=== PATIENT | female | born 1940 | race Caucasian/White ===

== ENCOUNTER → 2019-10-24 12:23 | Outpatient (BNVA) | payer MEDICARE, MEDICAID, SELFPAY | PROVIDERS: Family Provider Nurse Practitioner; PCP Nurse Practitioner; Visit Provider Nurse Practitioner | DX: I10 Essential (primary) hypertension (principal) | CPT/HCPCS: 80053; 80061 ==

== ENCOUNTER → 2020-04-23 11:58 | Outpatient (BNVA) | payer MEDICARE, MEDICAID, SELFPAY | PROVIDERS: Family Provider Nurse Practitioner; PCP Nurse Practitioner; Visit Provider Dermatology | DX: Z79.899 Other long term (current) drug therapy (principal) | CPT/HCPCS: 80053 ==

== ENCOUNTER → 2020-05-23 08:00 | Outpatient (BNVA) | payer MEDICARE, MEDICAID, SELFPAY | PROVIDERS: Family Provider Nurse Practitioner; PCP Nurse Practitioner; Visit Provider Dermatology | DX: Z79.899 Other long term (current) drug therapy (principal) | CPT/HCPCS: 80053 ==

== ENCOUNTER → 2020-06-26 11:54 | Outpatient (BNVA) | payer MEDICARE, MEDICAID, SELFPAY | PROVIDERS: Family Provider Nurse Practitioner; PCP Nurse Practitioner; Visit Provider Nurse Practitioner | DX: Z20.828 Contact with and (suspected) exposure to other viral communicable diseases (principal) | CPT/HCPCS: 87635 ==

== ENCOUNTER → 2020-11-27 12:05 | Outpatient (BNVA) | payer MEDICARE, MEDICAID, SELFPAY | PROVIDERS: Family Provider Nurse Practitioner; PCP Nurse Practitioner; Visit Provider Nurse Practitioner | DX: I10 Essential (primary) hypertension (principal); I63.9 Cerebral infarction, unspecified; K21.9 Gastro-esophageal reflux disease without esophagitis; B35.4 Tinea corporis; L70.0 Acne vulgaris; M50.30 Other cervical disc degeneration, unspecified cervical region | CPT/HCPCS: 80053; 80061; 84443 ==

== ENCOUNTER 2021-04-29 14:22 | Outpatient (CLI) | payer MEDICARE, MEDICAID, SELFPAY ==
--- NOTE | 2021-04-29 14:30 | MM_ITS ---
WS: [id number] BILATERAL DIGITAL DIAGNOSTIC MAMMOGRAM MAMMOGRAPHY WITH CAD CLINICAL INFORMATION: N63.0 - Unspecified lump in unspecified breast COMPARISON: October 2006 TECHNIQUE: Bilateral CC, MLO, and ML views. FINDINGS: Scattered fibroglandular densities bilaterally. Bilateral palpable markers. No specific underlying ma mmographic abnormalities. Ultrasound is pending. Vascular calcification. ULTRASOUND BREAST BILATERAL TECHNIQUE: Ultrasound bilateral breasts focused area of concern. CLINICAL INFORMATION: N63.0 - Unspecified lump in unspecified breast FINDINGS: Ultrasound bilateral breasts. Ultrasound right breast 11:00 position demonstrates shadowing artifact likely vascular calcification measuring 2.0 x 1.8 x 6.3 mm. Ultrasound left breast at the 3:00 position and at the nipple. Normal underlying breast tissue. No cy stic or solid lesions. No suspicious findings. MM/[place] [id number] IMPRESSION: BI-RADS: 2-Benign FOLLOW UP: 1 Year Follow-up Recommend return to annual screening mammography.
== END 2021-04-29 14:23 | disposition home or self-care (01) ==
LOC: RADSHAW 14:27
PROVIDERS: PCP Nurse Practitioner; Visit Provider Nurse Practitioner
DX: N63.11 Unspecified lump in the right breast, upper outer quadrant (principal); N63.21 Unspecified lump in the left breast, upper outer quadrant
CPT/HCPCS: 76642; 77066

== ENCOUNTER → 2021-07-01 15:41 | Outpatient (BNVA) | payer MEDICARE, MEDICAID, SELFPAY | PROVIDERS: PCP Nurse Practitioner; Visit Provider Nurse Practitioner | DX: I10 Essential (primary) hypertension (principal); E78.2 Mixed hyperlipidemia | CPT/HCPCS: 80053; 80061; 82607; 84443; 85025 ==

== ENCOUNTER → 2021-07-17 10:21 | Outpatient (BNVA) | payer MEDICARE, MEDICAID, SELFPAY | PROVIDERS: PCP Nurse Practitioner; Visit Provider Nurse Practitioner | DX: E87.1 Hypo-osmolality and hyponatremia (principal) | CPT/HCPCS: 80048 ==

== ENCOUNTER → 2021-08-21 11:03 | Outpatient (BNVA) | payer MEDICARE, MEDICAID, SELFPAY | PROVIDERS: PCP Nurse Practitioner; Visit Provider Nurse Practitioner Family | DX: J40 Bronchitis, not specified as acute or chronic (principal); R06.89 Other abnormalities of breathing | CPT/HCPCS: 71046; 85025 ==

== ENCOUNTER → 2021-11-18 13:52 | Outpatient (BNVA) | payer MEDICARE, MEDICAID, SELFPAY | PROVIDERS: PCP Nurse Practitioner; Visit Provider Nurse Practitioner Family | DX: E87.1 Hypo-osmolality and hyponatremia (principal); K04.7 Periapical abscess without sinus | CPT/HCPCS: 80053 ==

== ENCOUNTER → 2022-01-20 11:43 | Outpatient (BNVA) | payer MEDICARE, MEDICAID, SELFPAY | PROVIDERS: PCP Nurse Practitioner; Visit Provider Nurse Practitioner | DX: E78.2 Mixed hyperlipidemia (principal); R53.1 Weakness | CPT/HCPCS: 80053; 80061; 85025 ==

== ENCOUNTER → 2022-02-06 14:23 | Outpatient (BNVA) | payer MEDICARE, MEDICAID, SELFPAY | PROVIDERS: PCP Nurse Practitioner; Visit Provider Nurse Practitioner | DX: I10 Essential (primary) hypertension (principal); K21.9 Gastro-esophageal reflux disease without esophagitis; J30.1 Allergic rhinitis due to pollen; K58.0 Irritable bowel syndrome with diarrhea; E87.1 Hypo-osmolality and hyponatremia | CPT/HCPCS: 80048 ==

== ENCOUNTER 2022-04-22 12:33 | Outpatient (CLI) | payer MEDICARE, MEDICAID, SELFPAY ==
--- NOTE | 2022-04-22 13:00 | MR_ITS ---
WS: [id number] MRI BRAIN WITHOUT CONTRAST HISTORY: R53.1 - Weakness COMPARISON: 04/27/2014 TECHNIQUE: Diffusion imaging, multiplanar T1, T2 and FLAIR imaging obtained. No evidence for acute infarct or hemorrhage. Banks-white matter differentiation is normal. Mild symmetric atrophy and mild small vessel ischemic type changes. No large territory infarct. Small arachnoid cyst in the retrocerebellar region. Ventricles and extra-axial spaces are normal. No inferior displacement of cerebellar tonsils. The sella turcica and pituitary gland are unremarkabl e. Dural venous sinuses and [place] demonstrate no abnormality on this unenhanced studies. Paranasal sinuses: Clear. Mastoid air cells: Normal. Calvarium and scalp: Intact. MR/MR head wo con* [id number] IMPRESSION: 1. No acute infarct or hemorrhage. 2. Mild atrophy and small vessel ischemic disease. Mild progression since the prior study from 2013. 3. Retrocerebellar arachnoid cyst, stable.
== END 2022-04-22 12:34 | disposition home or self-care (01) ==
PROVIDERS: PCP Nurse Practitioner; Visit Provider Nurse Practitioner
DX: R53.1 Weakness (principal)
CPT/HCPCS: 70551

== ENCOUNTER → 2022-06-26 13:32 | Outpatient (BNVA) | payer MEDICARE, MEDICAID, SELFPAY | PROVIDERS: PCP Nurse Practitioner; Visit Provider Nurse Practitioner Family | DX: E87.1 Hypo-osmolality and hyponatremia (principal); R42 Dizziness and giddiness; H65.90 Unspecified nonsuppurative otitis media, unspecified ear; F03.90 Unspecified dementia, unspecified severity, without behavioral disturbance, psychotic disturbance, mood disturbance, and anxiety; Z86.73 Personal history of transient ischemic attack (TIA), and cerebral infarction without residual deficits; R25.1 Tremor, unspecified | CPT/HCPCS: 80053; 81000; 85025 ==

== ENCOUNTER → 2022-10-27 10:38 | Outpatient (BNVA) | payer MEDICARE, MEDICAID, SELFPAY | PROVIDERS: PCP Nurse Practitioner; Visit Provider Nurse Practitioner | DX: I10 Essential (primary) hypertension (principal) | CPT/HCPCS: 80053; 80061; 84443; 85025 ==

== ENCOUNTER → 2023-04-20 11:09 | Outpatient (BNVA) | payer MEDICARE, MEDICAID, SELFPAY | PROVIDERS: PCP Nurse Practitioner; Visit Provider Nurse Practitioner | DX: E55.9 Vitamin D deficiency, unspecified (principal); I10 Essential (primary) hypertension | CPT/HCPCS: 80053; 80061; 82306; 84443; 85025 ==

== ENCOUNTER → 2023-04-29 09:44 | Outpatient (BNVA) | payer MEDICARE, MEDICAID, SELFPAY | PROVIDERS: PCP Nurse Practitioner; Visit Provider Nurse Practitioner | DX: I10 Essential (primary) hypertension (principal); M16.0 Bilateral primary osteoarthritis of hip; M51.36 Other intervertebral disc degeneration, lumbar region; M47.9 Spondylosis, unspecified | CPT/HCPCS: 72100; 73502 ==

== ENCOUNTER → 2023-05-28 11:22 | Outpatient (BNVA) | payer MEDICARE, MEDICAID, SELFPAY | PROVIDERS: PCP Nurse Practitioner; Visit Provider Nurse Practitioner | DX: M25.531 Pain in right wrist (principal) | CPT/HCPCS: 73110 ==

== ENCOUNTER → 2023-07-13 10:09 | Outpatient (BNVA) | payer MEDICARE, MEDICAID, SELFPAY | PROVIDERS: PCP Nurse Practitioner; Visit Provider Nurse Practitioner | DX: E55.9 Vitamin D deficiency, unspecified (principal); I10 Essential (primary) hypertension; F41.8 Other specified anxiety disorders; I63.9 Cerebral infarction, unspecified; K21.9 Gastro-esophageal reflux disease without esophagitis; J30.1 Allergic rhinitis due to pollen; E78.2 Mixed hyperlipidemia | CPT/HCPCS: 80053; 80061; 81000; 82306; 85025 ==

== ENCOUNTER 2023-07-28 15:58 | Outpatient (CLI) | payer MEDICARE, MEDICAID, SELFPAY ==
--- NOTE | 2023-07-28 16:30 | CT_ITS ---
WS: [id number] CT HEAD NONCONTRAST HISTORY: I63.9 - Cerebral infarction, unspecified TECHNIQUE: Contiguous axial imaging performed through the brain in 2.5 mm imaging. Bone and soft tiss ue windows. Sagittal and coronal reformats reviewed. All CT scans at [facility] use at least one of these dose optimization techniques: automated exposure control; mA and/or kV adjustment per pa tient size (includes targeted exams where dose is matched to clinical indication); or iterative recon struction. DLP: 1007.79 mGy.cm COMPARISON: 04/26/2014 No acute intracranial hemorrhage, midline shift or mass effect. Mild atrophy and moderate small vessel ischemic type changes. Mild progression of small vessel diseas e and atrophy since the prior exam. Remote LEFT thalamic infarct. The LEFT thalamic infarct is remote but new since 2013. Ventricles: Normal size with no hydrocephalus. No inferior displacement of cerebellar tonsils. 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 Paranasal sinuses: As visualized are clear. Mastoid air cells: Well pneumatized. Calvarium and scalp: Hyperostosis frontalis interna. No destructive lesions. IMPRESSION: 1. No acute intracranial hemorrhage or edema. 2. Mild progression of cerebral atrophy and small vessel ischemic disease since 2013. 3. LEFT thalamic lacunar infarct is remote but new since 2013.
== END 2023-07-28 15:59 | disposition home or self-care (01) ==
LOC: RAD 15:59
PROVIDERS: PCP Nurse Practitioner; Visit Provider Nurse Practitioner
DX: I63.9 Cerebral infarction, unspecified (principal); G31.9 Degenerative disease of nervous system, unspecified
CPT/HCPCS: 70450

== ENCOUNTER → 2024-02-04 12:56 | Outpatient (BNVA) | payer MEDICARE, MEDICAID, SELFPAY | PROVIDERS: PCP Internal Medicine; Visit Provider Dermatology | DX: L57.0 Actinic keratosis (principal); L92.0 Granuloma annulare; D48.5 Neoplasm of uncertain behavior of skin | CPT/HCPCS: 99204 ==

== ENCOUNTER → 2024-04-11 13:26 | Outpatient (BNVA) | payer MEDICARE, MEDICAID, SELFPAY | PROVIDERS: PCP Internal Medicine; Visit Provider Nurse Practitioner Family | DX: D48.5 Neoplasm of uncertain behavior of skin (principal); L57.0 Actinic keratosis; L92.0 Granuloma annulare | CPT/HCPCS: 11102; 99214 ==

== ENCOUNTER 2024-04-17 17:36 | Emergency (ER) | payer MEDICARE, MEDICAID, SELFPAY ==
[2024-04-17 17:41] VITALS: BP 126/91; PULSE 92; RESP 18; TEMP 36.9; O2SAT 98
--- NOTE | 2024-04-17 17:42 | ED_ITS ---
HPI - Extremity Injury (Lower) 2 General: Chief Complaint: Weakness Stated Complaint: LEFT HIP PAIN S/P FALL Time Seen by Provider: 04/17/24 17:41 History of Present Illness: 84-year-old female was brought in from [facility] for evaluation of a fall. Patient complains of left hip pain and left shoulder pain. No obvious deformity is noted. Patient is not able to lift leg off the bed on the left side. Patient reports lateral hip pain. Patient is unsteady on her feet and reports that she stumbled and fell. 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 Mixed hyperlipidemia Vitamin D deficiency, unspecified Surgical History H/O hysterectomy for benign disease Status post surgical removal of nail matrix of toe of right foot both right and left feet both great toes 10/10/2019 Family History Grandfather Cancer Brother Cancer Other Hypertension Stroke Denies family history of Diabetes CAD (coronary artery disease) Clotting disorder Dementia Chronic kidney disease (CKD) Suicide Anesthesia complication Bleeding disorder Family history of premature coronary artery disease Lung disease Social History Smoking and tobacco/nicotine status: never used tobacco/nicotine Second hand smoke exposure: No Alcohol intake: never Substance/Drug Use: never Adopted: No Caregiver/support person: No Lives independently: Yes Household members: family Housing: House Marital status: / Number of children: 8 service: No Current occupational status: retired Current occupational exposures/hazards: No Pets and animals: Yes Pets & animals: bird(s) Do you think of yourself as: Straight/Heterosexual Current gender identity: Female Physical Exam 2 Const: COMMON NORMALS: alert HENMT: COMMON NORMALS: normocephalic HEAD & SCALP: normocephalic Neck/C-Spine: COMMON NORMALS: full ROM CERVICAL SPINE: No Cervical spine tenderness Chest: COMMONS NORMALS: normal palpation of entire chest wall Resp: COMMON NORMALS: normal respiratory effort and clear to auscultation bilaterally AUSCULTATION: clear to auscultation bilaterally Cardio: COMMON NORMALS: regular rate and regular rhythm RATE: regular rate RHYTHM: regular rhythm GI: COMMON NORMALS: Soft to palpation and non-tender PALPATION: Yes Soft to palpation Back/Pelvis: COMMON NORMALS: thoracic and lumbar spine normal to inspection Extremity: NARRATIVE EXTREMITY EXAM: Tenderness to the left hip, no obvious shortening or rotation distally. Patient has posterior left shoulder discomfort. LEFT LOWER EXTREMITY: Yes hip joint (Tenderness to palpation) Neuro: SENSORIUM/ORIENTATION: Yes alert Skin: COMMON NORMALS: turgor normal GENERAL SKIN EXAM: turgor normal Course 2 Vital Signs: Vital signs: Vital Signs Temperature 98.4 F 04/17/24 17:41 Pulse Rate 79 04/17/24 18:57 Respiratory Rate 18 04/17/24 17:41 Blood Pressure 132/104 04/17/24 18:57 Pulse Oximetry 96 04/17/24 18:57 Oxygen Delivery Me thod Room Air 04/17/24 17:41 MDM - Extremity Injury (Lower) Medical Decision Making Patient was referred from [facility] [place] for evaluation of injuries from a stumble and fall. Patient has tenderness to the left lateral left hip, and to the posterior shoulder. Patient reports no spinal tenderness. Differential diagnosis includes fracture, contusion, sprain, intracranial bleeding. CT of the head and cervical spine noted no fracture or intracranial bleeding. X-rays of the shoulder, chest x-ray, and hip and pelvis noted no fracture, or acute cardiopulmonary process. Patient was able to bear weight to transfer and to get to the commode. Patient was discharged back to nursing center for further care and treatment. Recommend follow-up or return for worsening symptoms or new concerns. Lab Data 04/17/24 18:12 04/17/24 18:12 Radiology Impressions Cervical Spine CT 04/17/24 17:48 IMPRESSION: There are degenerative changes as described above. No evidence for acute fracture. ADDENDUM: 04/17/24 1931 ADDENDUM: Please disregard the C2-C3 through the C7-T1 disc descriptions as they are not accurate and are part of the template not purposely used. There are multilevel broad-based disc osteophyte complexes which indents the anterior thecal sac and results in varying degrees of bilateral neural foraminal narrowing. Chest X-Ray 04/17/24 17:48 IMPRESSION: 1. No acute cardiopulmonary abnormality. If there is ongoing clinical concern for traumatic injury, consider correlation with CT. Head CT 04/17/24 17:48 IMPRESSION: There are senescent changes of the brain as described above. No evidence for large acute ischemic infarction or acute intracranial injury. Hip/Pelvis X-Ray 04/17/24 17:48 IMPRESSION: 1. No evidence of fracture or subluxation. If there is ongoing clinical concern, consider correlation with CT. Shoulder X-Ray 04/17/24 17:48 IMPRESSION: 1. No evidence of fracture or subluxation. If there is ongoing clinical concern, consider correlation with CT. Laboratory Results WBC 8.60 10^3/uL (3.29-11.43) 04/17/24 18:12 RBC 3.75 10^6/uL (3.85-5.65) L 04/17/24 18:12 Hgb 11.60 g/dL (11.27-16.99) 04/17/24 18:12 Hct 35.7 % (36-47) L 04/17/24 18:12 MCV 95.2 fl (85-98) 04/17/24 18:12 MCH 30.9 pg (27-33) 04/17/24 18:12 MCHC 32.5 g/dL (30-55) 04/17/24 18:12 RDW 13.1 % (12.1-15.1) 04/17/24 18:12 Plt Count 352 10^3/cmm (157-399) 04/17/24 18:12 MPV 10.3 fL (7.4-10.4) 04/17/24 18:12 Neut % (Auto) 66.9 % 04/17/24 18:12 Lymph % (Auto) 24.3 % 04/17/24 18:12 [place] % (Auto) 6.2 % 04/17/24 18:12 Eos % (Auto) 1.7 % 04/17/24 18:12 Baso % (Auto) 0.7 % 04/17/24 18:12 Neut # (Auto) 5.75 10^3/uL (1.8-7.7) 04/17/24 18:12 Lymph # (Auto) 2.1 10^3/uL (0.8-4.8) 04/17/24 18:12 [place] # (Auto) 0.5 10^3/uL (0.2-0.9) 04/17/24 18:12 Eos # (Auto) 0.2 10^3/uL (0.0-0.8) 04/17/24 18:12 Baso # (Auto) 0.1 10^3/uL (0.0-0.1) 04/17/24 18:12 Nucleated RBC % (auto) 0 % 04/17/24 18:12 Nucleated RBCs # 0.0 /100WBC 04/17/24 18:12 Sodium 136 mmol/L (136-145) 04/17/24 18:12 Potassium 4.2 mmol/L (3.5-5.1) 04/17/24 18:12 Chloride 101 mmol/L (98-107) 04/17/24 18:12 Carbon Dioxide 25 mmol/L (22-29) 04/17/24 18:12 Anion Gap 14.2 (5-19) 04/17/24 18:12 BUN 12 mg/dL (8-23) 04/17/24 18:12 Creatinine 0.8 mg/dL (0.5-0.9) 04/17/24 18:12 GFR Calculation Not Reportable 04/17/24 18:12 Glucose 91 mg/dL (65-115) 04/17/24 18:12 Calculated Osmolality 281 mOsm/kg (285-295) L 04/17/24 18:12 Calcium 9.7 mg/dL (8.5-10.5) 04/17/24 18:12 Total Bilirubin 0.2 mg/dL (0.15-1.2) 04/17/24 18:12 AST 14 U/L (0-32) 04/17/24 18:12 ALT 10 U/L (0-33) 04/17/24 18:12 Alkaline Phosphatase 106 U/L (35-105) H 04/17/24 18:12 Total Protein 7.8 g/dL (6.6-8.7) 04/17/24 18:12 Albumin 4.2 g/dL (3.5-5.2) 04/17/24 18:12 Globulin 3.6 g/dL (1.3-4.6) 04/17/24 18:12 Urine Color Yellow (Yellow) 04/17/24 18:12 Urine Appearance Cloudy (CLEAR) A 04/17/24 18:12 Urine pH 7 (5-7) 04/17/24 18:12 Ur Specific [place] 1.000 (1.005-1.030) L 04/17/24 18:12 Urine Protein Neg (Negative) 04/17/24 18:12 Urine Glucose (UA) Norm (Normal) 04/17/24 18:12 Urine Ketones 1+ (Negative) H 04/17/24 18:12 Urine Blood 2+ (Negative) H 04/17/24 18:12 Urine Nitrate Negative (Negative) 04/17/24 18:12 Urine Bilirubin Neg (Negative) 04/17/24 18:12 Urine Urobilinogen Neg mg/dL (Negative) 04/17/24 18:12 Ur Leukocyte Esterase 2+ (Negative) H 04/17/24 18:12 Urine RBC 0-4 /hpf (0-2) H 04/17/24 18:12 Urine WBC 15-25 /hpf (0-5) H 04/17/24 18:12 Ur Squamous Epith Cells 5-10 /hpf (0-5) H 04/17/24 18:12 Amorphous Sediment 1+ /hpf 04/17/24 18:12 Urine Bacteria 2+ /hpf (NONE) H 04/17/24 18:12 All radiology interpretation(s) finalized by discharge Discharge Plan Discharge Patient Disposition: Home Clinical Impression: Fall from ground level, Hip pain, left Left shoulder pain Qualifiers: Chronicity: acute Qualified Code(s): M25.512 - Pain in left shoulder Prescriptions: No Action (DME) syringe with needle 3 mL 22 gauge x 1 syringe See Rx Instructions .ROUTE .MEDSUPPLY Qty: 1 0RF Rx Instructions: As directed meclizine 25 mg tablet 25 mg PO PRN cholecalciferol (vitamin D3) 5,000 unit capsule 5,000 unit PO ONCE MediHoney (honey) 100 % paste 1 applic TOPICAL BID Qty: 528 0RF albuterol sulfate 2.5 mg /3 mL (0.083 %) solution for nebulization 2.5 mg inhalation QID PRN (Reason: shortness of breath or wheezing) Qty: 75 0RF amlodipine 5 mg tablet 5 mg PO DAILY Qty: 30 2RF citalopram [Celexa] 20 mg tablet 20 mg PO DAILY Qty: 30 2RF clopidogrel [Plavix] 75 mg tablet 75 mg PO QDAY Qty: 30 2RF famotidine [Pepcid] 40 mg tablet 40 mg PO DAILY Qty: 30 2RF levocetirizine 5 mg tablet 5 mg PO DAILY Qty: 30 2RF losartan [Cozaar] 50 mg tablet 50 mg PO DAILY Qty: 30 2RF rosuvastatin [Crestor] 10 mg tablet 10 mg PO DAILY Qty: 30 2RF (DME) Right wrist brace See Rx Instructions .Route .MEDSUPPLY Qty: 1 0RF Rx Instructions: As directed Discharge Orders: Discharge ED (Routine); Ordered 04/17/24 Ordered By: Adama Perez Referrals: Lawrence Woodard MD [Primary Care Provider] - Discharge Diet: Usual diet Discharge Activity: Increase activity as tolerated Patient Instructions: Fall Prevention (ED) Activity Restrictions/Additional Instructions: Up with assistance. Use a walker to help with ambulation or transfers. Use acetaminophen as needed for pain. Follow-up with primary care as needed. Return to ER for worsening symptoms or new concerns. Coding Level of Care Code ED Strike Out Machine Operator for Skinny Noriega
--- NOTE | 2024-04-17 17:48 | CTR_ITS ---
PROCEDURE INFORMATION: Exam: CT Cervical Spine Without Contrast Exam date and time: 04/17/2024 6:31 PM Age: 84 years old Clinical indication: Injury or trauma; Blunt trauma; Patient HX: EMS arrival from shelter for fall. C/O head pain. Anticoagulated. TECHNIQUE: Imaging protocol: Computed tomography of the cervical spine without contrast. Radiation optimization: All CT scans at this facility use at least one of these dose optimization techniques: automated exposure control; mA and/or kV adjustment per patient size (includes targeted exams where dose is matched to clinical indication); or iterative reconstruction. COMPARISON: CT head wo con* [id number] 04/17/2024 6:29 PM RADIATION DOSE METRICS: Total DLP (mGy-cm): 381.57 FINDINGS: Bones/joints: There are degenerative changes throughout the visualized spine including marginal osteophyte formations, endplate degenerative changes, and facet arthropathy. Multilevel disc space narrowing. There are multilevel broad-based disc osteophyte complexes which indent the anterior thecal sac and result in varying degrees of bilateral neuroforamina narrowing. There are degenerative changes across the temporomandibular joints. C2-C3: No significant disc bulge or herniation. No severe spinal canal stenosis. No significant neural foraminal narrowing. C3-C4: No significant disc bulge or herniation. No severe spinal canal stenosis. No significant neural foraminal narrowing. C4-C5: No significant disc bulge or herniation. No severe spinal canal stenosis. No significant neural foraminal narrowing. C5-C6: No significant disc bulge or herniation. No severe spinal canal stenosis. No significant neural foraminal narrowing. C6-C7: No significant disc bulge or herniation. No severe spinal canal stenosis. No significant neural foraminal narrowing. C7-T1: No significant disc bulge or herniation. No severe spinal canal stenosis. No significant neural foraminal narrowing. Lungs: Lung apices are normal. Soft tissues: Unremarkable. CT/CT cervical spin wo con* [id number] IMPRESSION: There are degenerative changes as described above. No evidence for acute fracture.
--- NOTE | 2024-04-17 17:48 | XRR_ITS ---
PROCEDURE INFORMATION: Exam: XR Left Shoulder Exam date and time: 04/17/2024 6:16 PM Age: 84 years old Clinical indication: Left; Patient HX: Lt hip/shoulder pain post fall; SOB TECHNIQUE: Imaging protocol: Radiologic exam of the left shoulder. Views: 2 or more views. COMPARISON: CR (CHEST, ) 04/17/2024 6:16 PM FINDINGS: Bones/joints: The glenohumeral articulation is grossly intact with mild osteoarthritis. The acromioclavicular articulation is grossly intact with mild-moderate osteoarthritis. Soft tissues: No gross soft tissue abnormality. XR/XR shoulder LT min 2V* [id number] IMPRESSION: 1. No evidence of fracture or subluxation. If there is ongoing clinical concern, consider correlation with CT.
--- NOTE | 2024-04-17 17:48 | XRR_ITS ---
PROCEDURE INFORMATION: Exam: XR Left Hip Exam date and time: 04/17/2024 6:16 PM Age: 84 years old Clinical indication: Injury or trauma; Patient HX: Lt hip/shoulder pain post fall; SOB TECHNIQUE: Imaging protocol: Radiologic exam of the left hip. Views: 2 or 3 views hip with pelvis when performed. COMPARISON: CR XR lumbar spine 2-3V* [id number] 04/29/2023 9:56 AM FINDINGS: Bones/joints: Mild-moderate osteoarthritis without evidence of fracture or subluxation. Pelvic ring is grossly intact. Soft tissues: Mild soft tissue edema overlying the greater trochanter on the left. XR/XR hip LT 2-3V wo/w pel* [id number] IMPRESSION: 1. No evidence of fracture or subluxation. If there is ongoing clinical concern, consider correlation with CT.
--- NOTE | 2024-04-17 17:48 | XRR_ITS ---
PROCEDURE INFORMATION: Exam: XR Chest Exam date and time: 04/17/2024 6:16 PM Age: 84 years old Clinical indication: Injury or trauma; Patient HX: Lt hip/shoulder pain post fall; SOB TECHNIQUE: Imaging protocol: Radiologic exam of the chest. Views: 1 view. COMPARISON: CR XR chest 2V* [id number] 08/21/2021 11:02 AM FINDINGS: Lungs: No focal consolidation. Pleural spaces: No evidence of pneumothorax. No evidence of pleural effusion. Heart/Mediastinum: Cardiomediastinal silhouette is within normal limits. Bones/joints: No evidence of acute osseous abnormality. XR/XR chest 1V portable [id number] IMPRESSION: 1. No acute cardiopulmonary abnormality. If there is ongoing clinical concern for traumatic injury, consider correlation with CT.
--- NOTE | 2024-04-17 17:48 | CTR_ITS ---
PROCEDURE INFORMATION: Exam: CT Head Without Contrast Exam date and time: 04/17/2024 6:29 PM Age: 84 years old Clinical indication: Injury or trauma; Blunt trauma (contusions or hematomas); Patient HX: EMS arrival from snf for fall. C/O head pain. Anticoagulated. ; Additional info: Fall injury TECHNIQUE: Imaging protocol: Computed tomography of the head without contrast. Radiation optimization: All CT scans at this facility use at least one of these dose optimization techniques: automated exposure control; mA and/or kV adjustment per patient size (includes targeted exams where dose is matched to clinical indication); or iterative reconstruction. COMPARISON: CT head wo con* [id number] 07/28/2023 4:08 PM RADIATION DOSE METRICS: Total DLP (mGy-cm): 1051.28 FINDINGS: Brain: There is diffuse cerebral atrophy present, consistent with this patient's age.Periventricular and subcortical white matter low densities are present which at this age likely represent microvascular ischemic change. There is a chronic lacunar infarct in the left thalamus.No evidence for large acute ischemic infarction. Please note acute ischemia can be occult by head CT. No evidence for acute intracranial hemorrhage. Calcified plaque is present within the intracranial vasculature. 2.6 cm CSF collection in the midline posterior fossa consistent with a benign arachnoid cyst. Cerebral ventricles: No ventriculomegaly. Paranasal sinuses: Visualized sinuses are unremarkable. No fluid levels. Mastoid air cells: Visualized mastoid air cells are well aerated. Bones: Unremarkable. No acute fracture. Soft tissues: Unremarkable. CT/CT head wo con* [id number] IMPRESSION: There are senescent changes of the brain as described above. No evidence for large acute ischemic infarction or acute intracranial injury.
--- NOTE | 2024-04-17 17:52 | ECG_ITS ---
[facility] Test Date: 2024-04-17 Pat Name: Angie Bhakta Department: Room: Gender: Female Draw Machine Operator: : [id number] Requested By: Adama Herman Order Number: [id number] Diana MD: Michael Pool M.D. Measurements Intervals Dennis Rate: 87 P: 66 NM: 142 QRS: 78 QRSD: 70 T: 61 QT: 353 QTc: 425 Interpretive Statements SINUS RHYTHM WITH OCCASIONAL SUPRAVENTRICULAR PREMATURE COMPLEXES NONSPECIFIC T-WAVE ABNORMALITY Compared to ECG 01/14/2018 20:21:21 No significant changes Electronically Signed On 04-18-2024 9:45:48 CDT by Michael Pool M.D. [email or web address]
[2024-04-17 18:18] VITALS: BP 149/107; PULSE 81; O2SAT 96
[2024-04-17 18:18] LABS: Basophils # 0.1 10^3/uL (0.0-0.1); Basophils % 0.7 %; Eosinophils # 0.2 10^3/uL (0.0-0.8); Eosinophils % 1.7 %; Hematocrit 35.7 % (36-47); Lymphocytes # 2.1 10^3/uL (0.8-4.8); Lymphocytes % 24.3 %; Mean Corpuscular HGB Conc 32.5 g/dL (30-55); Mean Corpuscular Hemoglobin 30.9 pg (27-33); Mean Corpuscular Volume 95.2 fl (85-98); Mean Platelet Volume 10.3 fL (7.4-10.4); Monocytes # 0.5 10^3/uL (0.2-0.9); Monocytes % 6.2 %; Neutrophils # 5.75 10^3/uL (1.8-7.7); Neutrophils % 66.9 %; Nucleated Red Blood Cells % 0 %; Platelet Count 352 10^3/cmm (157-399); Red Blood Count 3.75 10^6/uL (3.85-5.65); Red Cell Distribution Width 13.1 % (12.1-15.1)
[2024-04-17 18:41] LABS: Alanine Aminotransferase 10 U/L (0-33); Albumin Level 4.2 g/dL (3.5-5.2); Alkaline Phosphatase 106 U/L (35-105); Anion Gap 14.2 (5-19); Aspartate Amino Transferase 14 U/L (0-32); Blood Urea Nitrogen 12 mg/dL (8-23); Calcium 9.7 mg/dL (8.5-10.5); Carbon Dioxide 25 mmol/L (22-29); Chloride 101 mmol/L (98-107); Creatinine Clr Calc Pharmacy 50.2534; Globulin 3.6 g/dL (1.3-4.6); Glucose 91 mg/dL (65-115); Osmolality Calculated 281 mOsm/kg (285-295); Potassium 4.2 mmol/L (3.5-5.1); Sodium 136 mmol/L (136-145); Total Bilirubin 0.2 mg/dL (0.15-1.2); Total Protein 7.8 g/dL (6.6-8.7)
[2024-04-17 18:57] VITALS: BP 132/104; PULSE 79; O2SAT 96
[2024-04-17 19:10] LABS: Add Urine Culture? Yes; Add Urine Microscopic? YES; Amorphous Sediment Urine 1+ /hpf; Bacteria Urine 2+ /hpf; Bilirubin Urine Neg (Negative); Blood Urine 2+ (Negative); Glucose Urine UA Norm (Normal); Ketones Urine 1+ (Negative); Leukocyte Esterase Urine 2+ (Negative); Nitrate Urine Negative (Negative); Protein Urine Neg (Negative); RBC Urine 0-4 /hpf (0-2); Urine Appearance Cloudy (CLEAR); Urine Color Yellow (Yellow); Urobilinogen Urine Neg (Negative); WBC Urine 15-25 /hpf (0-5); pH Urine 7 (5-7)
== END 2024-04-17 20:09 | disposition home or self-care (01) ==
PROVIDERS: Emergency Provider Nurse Practitioner Family; PCP Internal Medicine
DX: M25.552 Pain in left hip (principal); I10 Essential (primary) hypertension; E78.2 Mixed hyperlipidemia; Z79.899 Other long term (current) drug therapy; Z86.73 Personal history of transient ischemic attack (TIA), and cerebral infarction without residual deficits; W01.0XXA Fall on same level from slipping, tripping and stumbling without subsequent striking against object, initial encounter
CPT/HCPCS: 70450; 71045; 72125; 73030; 73502; 80053; 81001; 85025; 87086; 93005; 99285

== ENCOUNTER → 2024-08-16 14:45 | Outpatient (BNVA) | payer MEDICARE, MEDICAID, SELFPAY | PROVIDERS: PCP Internal Medicine; Visit Provider Nurse Practitioner Family | DX: L57.0 Actinic keratosis (principal); D69.2 Other nonthrombocytopenic purpura; L57.8 Other skin changes due to chronic exposure to nonionizing radiation | CPT/HCPCS: 17000; 99213 ==

== ENCOUNTER → 2024-12-12 13:25 | Outpatient (BNVA) | payer MEDICARE, MEDICAID, SELFPAY | PROVIDERS: PCP Internal Medicine; Visit Provider Nurse Practitioner Family | DX: D69.2 Other nonthrombocytopenic purpura (principal); L57.8 Other skin changes due to chronic exposure to nonionizing radiation; D18.01 Hemangioma of skin and subcutaneous tissue; L57.0 Actinic keratosis | CPT/HCPCS: 17000; 99213 ==

== ENCOUNTER 2025-01-30 14:31 | Outpatient (CLI) | payer MEDICARE, MEDICAID, SELFPAY ==
--- NOTE | 2025-01-30 14:43 | CT_ITS ---
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 TECHNIQUE: Contiguous 2 mm axial images are performed through the neck with intravenous contrast. Sagittal and coronal reformats are also submitted. All CT scans at [facility] use at least one of these dose optimization techniques: automated exposure control; mA and/or kV adjustment per patient size (includes targeted exams where dose is matched to clinical indication); or iterative reconstruction. CONTRAST: CONTRAST: Omnipaque 350; 100 mL IV. DLP: 151.41 mGy.cm COMPARISON: Cervical spine CT 04/17/2024, 01/10/2017 Palpable marker is noted along the RIGHT lateral neck just below the ear and superficial to the parotid gland. There is mild heterogeneity within the parotid gland and a very tiny superficial low-attenuation nodule which was also present on the cervical spine CT of 04/17/2024. Nodule measures 3.4 mm. There is mild heterogeneity within the parotid gland but no definite mass. Parotid glands are very symmetric. No stones or calcifications or dilatation of the parotid duct. Nasopharynx, oropharynx, hypopharynx and larynx are unremarkable. No soft tissue masses or abnormal enhancement. Torus tubarius and fossa of Rosenmuller and parapharyngeal fat are normal. Small bilateral cervical chain lymph nodes. No hyperemic lymph nodes or necrotic lymph nodes. Similar appearance to the lymph nodes compared to 04/17/2024. Normal appearance of the thyroid. Submandibular glands are normal. Mild cervical spondylosis. Visualized portions of the skull base demonstrate no abnormalities. Orbits and globes are within normal limits. No soft tissue masses. Small amount of debris in the RIGHT sphenoid sinus. Tiny polyp or mucous retention cyst RIGHT maxillary sinus. Micronodule LEFT apex. This small nodule is also present on the study from 2013. Atherosclerosis aorta. Mediastinal lymph nodes in the upper chest similar to the prior exam from 2013. CT/CT neck w con* [id number] IMPRESSION: 1. Stable appearance of the parotid glands since 2016. There is a very tiny lo w-attenuation, 3.4 mm nodule along the superficial RIGHT parotid gland which is closely associated with the marker placed at the palpable site. 2. No cervical chain lymphadenopathy. 3. Long-term stability 3 mm nodule LEFT upper lobe. 4. No parotid duct calcification or parotid gland inflammation.
[2025-01-30 15:09] LABS: Blood Urea Nitrogen 7 mg/dL (8-23)
[2025-01-30] MEDS: iohexol 350 mg/mL 500 mL Btl (per mL) IV (15:19)
== END 2025-01-30 14:32 | disposition home or self-care (01) ==
LOC: RAD 14:36
PROVIDERS: PCP Internal Medicine; Visit Provider Otolaryngology
DX: D37.030 Neoplasm of uncertain behavior of the parotid salivary glands (principal); K11.20 Sialoadenitis, unspecified; R93.89 Abnormal findings on diagnostic imaging of other specified body structures; R59.0 Localized enlarged lymph nodes; M47.892 Other spondylosis, cervical region; J34.89 Other specified disorders of nose and nasal sinuses; R91.1 Solitary pulmonary nodule; I70.0 Atherosclerosis of aorta
CPT/HCPCS: 70491; 82565; 84520

== ENCOUNTER → 2025-05-01 10:27 | Outpatient (BNVA) | payer MEDICARE, MEDICAID, SELFPAY | PROVIDERS: PCP Nurse Practitioner; Visit Provider Nurse Practitioner | DX: I10 Essential (primary) hypertension (principal); E55.9 Vitamin D deficiency, unspecified; E78.2 Mixed hyperlipidemia; N39.0 Urinary tract infection, site not specified | CPT/HCPCS: 80053; 80061; 81000; 82306; 82607; 84443; 85025; 87086 ==

== ENCOUNTER 2025-06-07 14:12 | Outpatient (CLI) | payer MEDICARE, MEDICAID, SELFPAY ==
--- NOTE | 2025-06-07 14:00 | USCV_ITS ---
Angie Bhakta Age: 85 Gender: F : 1940 Exam Date: 06/07/2025 14:33 Ordering Phys: Kim Delgadillo Technologist: SHAYY Exam Location: [facility] [place] Indication: bruit Risk Factors: Previous Vascular Surgery: Right Brachial BP: / Left Brachial BP: / Right Left Velocity (cm/s) Spectral Plaque Velocity (cm/s) Spectral Plaque Syst/Diast Broadening Syst/Diast Broadening 59.60/ 11.80 Prox CCA 67.60 / 10.60 64.80/ 14.90 Mid CCA 64.30 / 9.40 77.50/ 13.80 Distal CCA 49.80 / 9.40 104.40/32.70 Prox ICA 100.30/ 22.70 132.00/41.20 Mid ICA 89.40 / 10.10 85.50/ 23.50 Distal ICA 45.80 / 11.80 154.10 ECA 86.40 1.30 ICA/CCA 2.00 Antegrade Vertebral Antegrade 27.90/ 8.00 cm/s 38.50/ 10.00 cm/s Tri Subclavian Tri 70.70 135.3 0 FINDINGS Comparison: none available. No significant elevation of systolic or diastolic velocities. Turbulent waveforms. Diffuse bilateral scattered calcified plaque and intimal thickening throughout the common carotid arteries and extending through the bifurcation. Very dense plaque at the bifurcations obscuring the lumen. Antegrade vertebral arteries. CONCLUSIONS Bilateral ICA stenosis less than 50%. Diffuse carotid plaque. Bifurcations are difficult to evaluate, consider follow up CTA carotid arteries. Dr. Dary Roa DO (Electronically Signed) Final Date: 08 June 2025 09:11 S
== END 2025-06-07 14:13 | disposition home or self-care (01) ==
LOC: RAD 14:13
PROVIDERS: PCP Nurse Practitioner; Visit Provider Nurse Practitioner
DX: R09.89 Other specified symptoms and signs involving the circulatory and respiratory systems (principal); I65.23 Occlusion and stenosis of bilateral carotid arteries
CPT/HCPCS: 93880

== ENCOUNTER → 2025-06-12 13:56 | Outpatient (BNVA) | payer MEDICARE, MEDICAID, SELFPAY | PROVIDERS: PCP Nurse Practitioner; Visit Provider Nurse Practitioner Family | DX: B35.4 Tinea corporis (principal); L82.1 Other seborrheic keratosis; L57.8 Other skin changes due to chronic exposure to nonionizing radiation; D18.01 Hemangioma of skin and subcutaneous tissue; D69.2 Other nonthrombocytopenic purpura | CPT/HCPCS: 99214 ==

== ENCOUNTER → 2025-07-17 10:39 | Outpatient (BNVA) | payer MEDICARE, MEDICAID, SELFPAY | PROVIDERS: PCP Nurse Practitioner; Visit Provider Nurse Practitioner Family | DX: B35.4 Tinea corporis (principal); L82.0 Inflamed seborrheic keratosis; L53.8 Other specified erythematous conditions; L29.89 Other pruritus; Z78.9 Other specified health status | CPT/HCPCS: 17110; 99214 ==

== ENCOUNTER → 2025-07-24 10:54 | Outpatient (BNVA) | payer MEDICARE, MEDICAID, SELFPAY | PROVIDERS: PCP Nurse Practitioner; Visit Provider Nurse Practitioner | DX: R05.9 Cough, unspecified (principal); I25.10 Atherosclerotic heart disease of native coronary artery without angina pectoris; M85.88 Other specified disorders of bone density and structure, other site | CPT/HCPCS: 71046 ==